=== PATIENT | female | born 2000 | race Caucasian/White ===

== ENCOUNTER → 2020-06-09 12:52 | Outpatient (CLI) | payer BC, SELFPAY ==
--- NOTE | ~2020-06-09 | US_ITS ---
EXAMINATION: US transvaginal EXAM DATE: 06/09/2020 13:17 INDICATION: Pelvic pain. TECHNIQUE: Pelvic transvaginal sonogram was performed. There are multiple grayscale and Doppler imag es available for interpretation. There is no prior study for comparison. FINDINGS: Uterus measures 5.8 x 2.9 x 3.2 cm, and is morphologically normal. Endometrial stripe mauricio sures 3 mm, within normal limits. There is no free pelvic fluid. Right adnexa: The ovary measures 2.5 x 1.2 x 2.1 cm and is morphologically normal. Ovarian vascular f low confirmed. Left adnexa: The ovary measures 1.5 x 0.8 x 1.6 cm and is morphologically normal. Ovarian vascular fl ow confirmed. IMPRESSION: 1. Unremarkable pelvic ultrasound exam. Reviewed, dictated and finalized at location A.
== END ==
PROVIDERS: PCP Family Medicine; Visit Provider Nurse Practitioner
DX: R10.2 Pelvic and perineal pain (principal)
CPT/HCPCS: 76830

== ENCOUNTER 2020-09-12 00:48 | Outpatient (CLI) | payer BC, SELFPAY ==
[2020-09-12 18:32] LABS: SARS-CoV-2 RNA PCR Negative
== END 2020-09-12 00:49 | disposition home or self-care (01) ==
LOC: ANHCOVIDDT 00:48
PROVIDERS: PCP Family Medicine; Visit Provider Internal Medicine Gastroenterology
DX: Z01.812 Encounter for preprocedural laboratory examination (principal); Z20.828 Contact with and (suspected) exposure to other viral communicable diseases
CPT/HCPCS: 87635; C9803; U0003

== ENCOUNTER 2020-09-15 00:51 | Day surgery (SDC) | payer BC, SELFPAY ==
[2020-09-07 13:35] VITALS: BMI 33.8
[2020-09-15 08:38] VITALS: BP 118/64; PULSE 115; RESP 20; TEMP 36.3; O2SAT 99
[2020-09-15] MEDS: LACTATED RINGERS 1,000 ML 150 ML IV CONT (08:51)
--- NOTE | 2020-09-15 09:11 | P.PNAN_ITS ---
Anes - Eval Pre Procedure Procedure: Operation Date: 09/15/20 10:00 Proposed Procedures p Screening Colonoscopy - Rolando Eller MD Date/Time: 09/15/20 09:11 Pre Op Diagnosis: Family HX of Colon CA Patient Data Age: 20 Gender: F Height: 5 ft 2 in Weight: 84 kg Last Vital Signs Temp 97.3 F L 09/15/20 08:38 Pulse 115 H 09/15/20 08:38 Resp 20 09/15/20 08:38 BP 118/64 09/15/20 08:38 Pulse Ox 99 09/15/20 08:38 Allergies Allergy/AdvReac Type Severity Reaction Status Date / Time amitriptyline [From Elavil] Allergy Intermediate increased Verified 09/15/20 08:26 heart rate latex Allergy Intermediate rash Verified 09/15/20 08:26 Home Medications Medication Instructions Recorded Confirmed Type bupropion HCl 150 mg 24 hr tablet, 150 mg PO QAM 04/20/20 04/20/20 History extended release desogestrel 0.15 mg-ethinyl 1 tablet PO DAILY 04/20/20 09/07/20 History estradiol 0.03 mg tablet fexofenadine 180 mg tablet 180 mg PO DAILY 04/20/20 09/07/20 History gabapentin 300 mg capsule 600 mg PO HS 04/20/20 09/07/20 History metformin 500 mg tablet 500 mg PO BID 04/20/20 09/07/20 History bupropion HCl 300 mg PO DAILY 09/07/20 09/07/20 History calcium carbonate-vitamin D3 1 tablet PO DAILY 09/07/20 09/07/20 History [Calcium 600 with Vitamin D3] lactobacillus comb no.10 20,000 mmu cells PO DAILY 09/07/20 09/07/20 History [Probiotic] PMFSH Past Medical History Medical History (Updated 06/17/20 @ 10:37 by Rolando Eller MD) Alkaline phosphatase elevation Anxiety Diarrhea PCOS (polycystic ovarian syndrome) Vulvodynia Surgical History Surgical History [place] teeth removed Family History Family History Mother Breast cancer, Onset Age: 53 Father Carcinoma of colon, Onset Age: 50 Social History Social History Smoking status: Never smoker Alcohol intake: current Substance use: never Substance use type: does not use Living arrangements: with family Spiritual care concerns: No Exam Day of Procedure 09/15/20 09:11 Patient weight: overweight Heart: regular rate and rhythm Lungs: clear to auscultation Airway: Mallampati scale class II Neurological: alert and oriented
--- NOTE | 2020-09-15 09:13 | P.PNAN_ITS ---
Anes - Initial Pre Proc Eval Procedure: Operation Date: 09/15/20 10:00 Proposed Procedures p Screening Colonoscopy - Rolando Eller MD Date/Time: 09/15/20 09:13 Surgeon: Rolando Eller MD Pre Op Diagnosis: Family HX of Colon CA Patient Data Age: 20 Gender: F Height: 5 ft 2 in Weight: 84 kg Last Vital Signs Temp 97.3 F L 09/15/20 08:38 Pulse 115 H 09/15/20 08:38 Resp 20 09/15/20 08:38 BP 118/64 09/15/20 08:38 Pulse Ox 99 09/15/20 08:38 Allergies Allergy/AdvReac Type Severity Reaction Status Date / Time amitriptyline [From Elavil] Allergy Intermediate increased Verified 09/15/20 08:26 heart rate latex Allergy Intermediate rash Verified 09/15/20 08:26 Home Medications Medication Instructions Recorded Confirmed Type bupropion HCl 150 mg 24 hr tablet, 150 mg PO QAM 04/20/20 04/20/20 History extended release desogestrel 0.15 mg-ethinyl 1 tablet PO DAILY 04/20/20 09/07/20 History estradiol 0.03 mg tablet fexofenadine 180 mg tablet 180 mg PO DAILY 04/20/20 09/07/20 History gabapentin 300 mg capsule 600 mg PO HS 04/20/20 09/07/20 History metformin 500 mg tablet 500 mg PO BID 04/20/20 09/07/20 History bupropion HCl 300 mg PO DAILY 09/07/20 09/07/20 History calcium carbonate-vitamin D3 1 tablet PO DAILY 09/07/20 09/07/20 History [Calcium 600 with Vitamin D3] lactobacillus comb no.10 20,000 mmu cells PO DAILY 09/07/20 09/07/20 History [Probiotic] Patient hx anesthesia problems: none Family hx anesthesia problems: none PMFSH Past Medical History Medical History (Updated 06/17/20 @ 10:37 by Rolando Eller MD) Alkaline phosphatase elevation Anxiety Diarrhea PCOS (polycystic ovarian syndrome) Vulvodynia Surgical History Surgical History [place] teeth removed Family History Family History Mother Breast cancer, Onset Age: 53 Father Carcinoma of colon, Onset Age: 50 Social History Social History Smoking status: Never smoker Alcohol intake: current Substance use: never Substance use type: does not use Living arrangements: with family Spiritual care concerns: No Anes - Eval Final PreProcedure Day of Procedure 09/15/20 09:13 Patient weight: overweight Heart: regular rate and rhythm Lungs: clear to auscultation Airway: Mallampati scale class II Neurological: alert and oriented Last oral intake: >/= 8 hours ASA classification: II Emergent: no Anesthetic plan: proceed Anesthesia type and monitoring: general GIVS and standard monitoring Informed Consent: The patient's anesthetic plan and its attendant risks and benefits were discussed with the patient/family/POA. Questions were solicited and answers provided to the satisfaction of the patient/family/POA.
--- NOTE | 2020-09-15 09:15 | P.PNAN_ITS ---
Anes - Initial Pre Proc Eval Procedure: Operation Date: 09/15/20 10:00 Proposed Procedures p Screening Colonoscopy - Rolando Eller MD Date/Time: 09/15/20 09:15 Surgeon: Rolando Eller MD Pre Op Diagnosis: Family HX of Colon CA Patient Data Age: 20 Gender: F Height: 5 ft 2 in Weight: 84 kg Last Vital Signs Temp 97.3 F L 09/15/20 08:38 Pulse 115 H 09/15/20 08:38 Resp 20 09/15/20 08:38 BP 118/64 09/15/20 08:38 Pulse Ox 99 09/15/20 08:38 Allergies Allergy/AdvReac Type Severity Reaction Status Date / Time amitriptyline [From Elavil] Allergy Intermediate increased Verified 09/15/20 08:26 heart rate latex Allergy Intermediate rash Verified 09/15/20 08:26 Home Medications Medication Instructions Recorded Confirmed Type bupropion HCl 150 mg 24 hr tablet, 150 mg PO QAM 04/20/20 04/20/20 History extended release desogestrel 0.15 mg-ethinyl 1 tablet PO DAILY 04/20/20 09/07/20 History estradiol 0.03 mg tablet fexofenadine 180 mg tablet 180 mg PO DAILY 04/20/20 09/07/20 History gabapentin 300 mg capsule 600 mg PO HS 04/20/20 09/07/20 History metformin 500 mg tablet 500 mg PO BID 04/20/20 09/07/20 History bupropion HCl 300 mg PO DAILY 09/07/20 09/07/20 History calcium carbonate-vitamin D3 1 tablet PO DAILY 09/07/20 09/07/20 History [Calcium 600 with Vitamin D3] lactobacillus comb no.10 20,000 mmu cells PO DAILY 09/07/20 09/07/20 History [Probiotic] Patient hx anesthesia problems: none Family hx anesthesia problems: none PMFSH Past Medical History Medical History (Updated 06/17/20 @ 10:37 by Rolando Eller MD) Alkaline phosphatase elevation Anxiety Diarrhea PCOS (polycystic ovarian syndrome) Vulvodynia Surgical History Surgical History [place] teeth removed Family History Family History Mother Breast cancer, Onset Age: 53 Father Carcinoma of colon, Onset Age: 50 Social History Social History Smoking status: Never smoker Alcohol intake: current Substance use: never Substance use type: does not use Living arrangements: with family Spiritual care concerns: No Anes - Eval Final PreProcedure Day of Procedure 09/15/20 09:15 Patient weight: overweight Heart: regular rate and rhythm Lungs: clear to auscultation Airway: Mallampati scale class II Neurological: alert and oriented Last oral intake: >/= 8 hours ASA classification: II Emergent: no Anesthetic plan: proceed Anesthesia type and monitoring: general GIVS and standard monitoring Informed Consent: The patient's anesthetic plan and its attendant risks and benefits were discussed with the patient/family/POA. Questions were solicited and answers provided to the satisfaction of the patient/family/POA.
--- NOTE | 2020-09-15 09:26 | PM.HPGS ---
History of Present Illness History of Present Illness Consent: Risks, benefits, and alternatives have been discussed and questions answered. Patient agrees to proceed with procedure. Chief complaint: Family HX of Colon CA Narrative: Katherine Valladares is a 20 year old female with intermittent abdominal cramping and diarrhea but lately better, also father with colon cancerat 50yo. Review of Systems Constitutional: Constitutional: Denies headache(s) and Denies weakness Eyes: Eyes: Denies blurry vision ENT: Reports Normal hearing present, Denies headache(s) and Denies neck pain Cardiovascular: Cardiovascular: Denies chest pain and Denies dyspnea Respiratory: Respiratory: Denies dyspnea Gastrointestinal: Gastrointestinal: Reports no additional gastrointestinal complaints Genitourinary: Genitourinary: Denies dysuria Musculoskeletal: Musculoskeletal: Denies neck pain Integumentary/Breasts: Skin/Breast: Denies dry skin Neurologic: Reports Normal hearing present, Denies headache(s) and Denies weakness Psychiatric: Psychiatric: Denies anxiety Endocrine: Endocrine: Denies change in body appearance Hematologic/Lymphatic: Hematologic/Lymphatic: Denies easy bleeding Allergic/Immunologic: Allergic/Immunologic: Denies urticaria PMFSH Past Medical History Medical History (Updated 06/17/20 @ 10:37 by Rolando Eller MD) Alkaline phosphatase elevation Anxiety Diarrhea PCOS (polycystic ovarian syndrome) Vulvodynia Surgical History Surgical History [place] teeth removed Family History Family History Mother Breast cancer, Onset Age: 53 Father Carcinoma of colon, Onset Age: 50 Social History Social History Smoking status: Never smoker Alcohol intake: current Substance use: never Substance use type: does not use Living arrangements: with family Spiritual care concerns: No Meds Home Medications and Allergies Home Medications Medication Instructions Recorded Confirmed Type bupropion HCl 150 mg 24 hr tablet, 150 mg PO QAM 04/20/20 04/20/20 History extended release desogestrel 0.15 mg-ethinyl 1 tablet PO DAILY 04/20/20 09/07/20 History estradiol 0.03 mg tablet fexofenadine 180 mg tablet 180 mg PO DAILY 04/20/20 09/07/20 History gabapentin 300 mg capsule 600 mg PO HS 04/20/20 09/07/20 History metformin 500 mg tablet 500 mg PO BID 04/20/20 09/07/20 History bupropion HCl 300 mg PO DAILY 09/07/20 09/07/20 History calcium carbonate-vitamin D3 1 tablet PO DAILY 09/07/20 09/07/20 History [Calcium 600 with Vitamin D3] lactobacillus comb no.10 20,000 mmu cells PO DAILY 09/07/20 09/07/20 History [Probiotic] Allergies Allergy/AdvReac Type Severity Reaction Status Date / Time amitriptyline [From Elavil] Allergy Intermediate increased Verified 09/15/20 08:26 heart rate latex Allergy Intermediate rash Verified 09/15/20 08:26 Vital Signs Vital Signs - 24 hr 09/15/20 08:38 Temperature 97.3 F L Pulse Rate 115 H Respiratory Rate 20 Blood Pressure 118/64 Pulse Oximetry 99 Exam Const: General: comfortable and no acute distress HENMT: General nose exam: Normal nares present Eyes: General: appearance normal, both eyes and all related structures Neck: Neck: no JVD Resp: Auscultation: clear to auscultation bilaterally Cardio: Rate: regular rate Rhythm: regular rhythm GI: Inspection: non-distended GI Palp: Yes Soft to palpation Skin: General skin exam: normal color Neuro: General: gait normal Speech: normal speech Extrem: General: normal to inspection Psych: Mental Status: mental status grossly normal Assessment and Plan Assessment and plan (1) Diarrhea: Code(s): R19.7 - Diarrhea, unspecified Status: Acute Assessment and Plan: will proceed with rosmery
[2020-09-15 09:48] VITALS: BP 99/50; PULSE 92; RESP 19; O2SAT 98
[2020-09-15 09:57] VITALS: BP 100/60; PULSE 90; RESP 19; O2SAT 100
[2020-09-15 10:07] VITALS: BP 119/78; PULSE 88; RESP 24; O2SAT 100
== END 2020-09-15 10:15 | disposition home or self-care (01) ==
PROVIDERS: PCP Family Medicine; Visit Provider Internal Medicine Gastroenterology
PROC: 0DJD8ZZ Inspection of Lower Intestinal Tract, Via Natural or Artificial Opening Endoscopic (ICD-10-PCS; CPT 45378; principal; 2020-09-15 10:00)
DX: K52.9 Noninfective gastroenteritis and colitis, unspecified (principal); K62.89 Other specified diseases of anus and rectum; Z80.0 Family history of malignant neoplasm of digestive organs; E28.2 Polycystic ovarian syndrome; F41.9 Anxiety disorder, unspecified
CPT/HCPCS: 45380; 88305; J2704; J7120

== ENCOUNTER 2020-10-02 16:36 | Outpatient (CLI) | payer BC, SELFPAY ==
[2020-10-02 17:30] LABS: Hematocrit 38.9 % (37.0-47.0); Hemoglobin 12.9 g/dL (12.0-15.0); Mean Corpuscular HGB Conc 33.2 g/dl (32-36); Mean Corpuscular Hemoglobin 27.9 pg (26-34); Mean Platelet Volume 8.1 fl (7.4-10.4); Platelet Count Result 397 k/mm3 (150-375); Red Blood Count 4.63 M/mm3 (4.2-5.4); Red Cell Distribution Width 12.7 % (11.5-14.5); White Blood Count 6.9 K/mm3 (4.5-10.0)
[2020-10-02 17:44] LABS: Alanine Aminotransferase 13 U/L (4-35); Albumin Level 3.8 g/dL (3.5-5.1); Alkaline Phosphatase 140 U/L (38-126); Anion Gap 9 mmol/L (8-16); Aspartate Amino Transferase 23 U/L (14-36); Bilirubin,Total 0.4 mg/dL (0.2-1.3); Blood Urea Nitrogen 5 mg/dL (7-17); Calcium 9.1 mg/dL (8.4-10.2); Carbon Dioxide 22 mmol/L (22-30); Chloride 107 mmol/L (98-107); Estimated Glomerular Filt Rate > 60; Glucose 137 mg/dL (65-105); Potassium 3.4 mmol/L (3.4-5.0); Sodium 138 mmol/L (137-145)
[2020-10-02 17:48] LABS: CRP 1.5 mg/dL (<1.0)
[2020-10-02 18:02] LABS: Erythrocyte Sedimentation Rate 27 mm/hr (0-20)
[2020-10-02 18:29] LABS: Hepatitis B Surface Antigen Negative (Negative)
[2020-10-02 18:49] LABS: Hepatitis B Surface Anti Res Positive
[2020-10-07 18:53] LABS: Hepatitis B Core Ab Total Nonreactive (Nonreactive)
[2020-10-20 17:25] LABS: TPMT Activity 14
== END 2020-10-02 16:37 | disposition home or self-care (01) ==
LOC: ANHLAB 16:38
PROVIDERS: PCP Family Medicine; Visit Provider Internal Medicine Gastroenterology
DX: R19.7 Diarrhea, unspecified (principal); K52.9 Noninfective gastroenteritis and colitis, unspecified
CPT/HCPCS: 36415; 80053; 82657; 85027; 85652; 86140; 86704; 86706; 87340

== ENCOUNTER 2021-03-30 12:59 | Outpatient (CLI) | payer BC, SELFPAY ==
--- NOTE | ~2021-03-30 | CT_ITS ---
EXAMINATION: CT brain wo con EXAM DATE: 03/30/2021 13:41 INDICATION: Intermittent right temporal headaches since October. TECHNIQUE: Spiral CT of the head was performed without contrast. Axial, coronal and sagittal images were reviewed. The dose-length product (DLP) for this examination was 605.33 mGy-cm. The exposure w as tailored according to patient size, and iterative reconstruction (ASIR) was used as additional dos e reduction technique. There is no prior study for comparison. FINDINGS: There is no acute intraparenchymal hemorrhage. No evidence of intraparenchymal brain mass lesion. No evidence of acute infarction. There is no mass effect or midline shift. The ventricles are normal in size. There are no extra-axial collections. There are no acute calvarial fractures. T he orbits are unremarkable. Soft tissue is unremarkable. The visualized sinuses and mastoid air júnior ls are well aerated. IMPRESSION: 1. Normal head CT examination. Reviewed, dictated and finalized at location B.
== END 2021-03-30 13:00 | disposition home or self-care (01) ==
LOC: ANHIMG 13:04
PROVIDERS: PCP Family Medicine; Visit Provider Physician Assistant
DX: R51.9 Headache, unspecified (principal)
CPT/HCPCS: 70450

== ENCOUNTER 2022-03-28 10:32 | Outpatient (RCR) | payer BC, SELFPAY ==
[2022-03-28] MEDS: ACETAMINOPHEN 325 MG TABLET 650 MG PO (14:36)
[2022-03-28] MEDS: FAMOTIDINE 20 MG TABLET PO (14:37)
[2022-03-28] MEDS: diphenhydrAMINE HCl CAP 25 MG CAPSULE PO (14:37)
[2022-03-28 14:39] VITALS: BP 135/89; PULSE 109; TEMP 36.2; O2SAT 100
[2022-03-28] MEDS: BEBTELOVIMAB 175 MG/2 ML VIAL IV PUSH (15:00)
[2022-03-28 15:36] VITALS: BP 129/84; PULSE 107; O2SAT 100
== END 2022-03-28 16:00 | disposition home or self-care (01) ==
LOC: AMCINF 10:32
PROVIDERS: PCP Family Medicine; Referring Provider Family Medicine; Visit Provider Internal Medicine Hematology & Oncology
DX: U07.1 COVID-19 (principal)
CPT/HCPCS: A9270; M0222; Q0222

== ENCOUNTER 2022-09-08 08:19 | Emergency (ER) | payer BC, SELFPAY ==
--- NOTE | ~2022-09-08 | XR_ITS ---
XR ankle RT min 3V DATE: 09/08/2022 08:47 INDICATION: Medial right ankle pain after a fall yesterday TECHNIQUE: 4 views COMPARISON: None FINDINGS: No fracture or dislocation of the ankle or disruption of the ankle mortise. No periosteal r eaction or bone destruction. IMPRESSION: Negative Reviewed, dictated and finalized at location A. NOLOGY TEACHER IMPRESSION: Negative
[2022-09-08 08:26] VITALS: BP 114/80; PULSE 104; RESP 14; TEMP 37.6; O2SAT 100
--- NOTE | 2022-09-08 09:04 | ED.LOWEXIN ---
HPI - Extremity Injury (Lower) General Chief Complaint: Extremity Injury, Lower Stated Complaint: rt ankle injury yesterday Time Seen by Provider: 09/08/22 08:27 History of Present Illness HPI Narrative: This is a 22-year-old female with past medical history of anxiety, who presents emergency department complaining of right ankle pain. Patient states she stepped in a hole yesterday and felt a pop. She describes the pain as 4/10, greater with weightbearing though she is able to walk. She denies any other injuries and has no other complaints. Related Data Home Medications Medication Instructions Recorded Confirmed desogestrel 0.15 mg-ethinyl 1 tablet PO DAILY 04/20/20 03/28/22 estradiol 0.03 mg tablet (Enskyce) fexofenadine 180 mg tablet 180 mg PO DAILY 04/20/20 03/28/22 gabapentin 300 mg capsule 600 mg PO HS 04/20/20 03/28/22 metformin 500 mg tablet 500 mg PO BID 04/20/20 03/28/22 calcium carbonate 600 mg-vitamin 1 tablet PO DAILY 09/07/20 03/28/22 D3 5 mcg (200 unit) tablet tofacitinib 22 mg tablet,extended 22 mg PO DAILY 03/28/22 03/28/22 release 24 hr (Xeljanz XR) Allergies Allergy/AdvReac Type Severity Reaction Status Date / Time amitriptyline [From Elavil] Allergy Intermediate increased Verified 04/20/22 11:24 heart rate latex Allergy Intermediate rash Verified 04/20/22 11:24 Review of Systems Review of Systems: CONSTITUTIONAL: Denies fever, chills, or sweats. EYES: Denies visual changes, redness, or discharge. ENT: Denies rhinorrhea, congestion, sore throat, or otalgia. CARDIOVASCULAR: Denies chest pain, palpitations, or edema. RESPIRATORY: Denies cough or dyspnea. GASTROINTESTINAL: Denies abdominal pain, nausea, vomiting, or diarrhea. GENITOURINARY: Denies dysuria or hematuria. SKIN: Denies rash or itching. MUSCULOSKELETAL: Right ankle pain denies back pain, or myalgia. NEUROLOGIC: Denies headache, numbness, dizziness, or weakness. PSYCHIATRIC: Denies anxiety or depression. PENDING SALE TO [facility] Past Medical History Medical History Alkaline phosphatase elevation Anxiety Colitis Diarrhea PCOS (polycystic ovarian syndrome) Ulcerative colitis Vulvodynia Surgical History Surgical History [place] teeth removed Family History Family History Mother Breast cancer, Onset Age: 53 Father Carcinoma of colon, Onset Age: 50 Social History Social History Smoking status: Never smoker Alcohol intake: current Substance use: never Substance use type: does not use Spiritual care concerns: No Exam Narrative: GENERAL: Well-developed, well-nourished, and in no acute distress. HEAD: Normocephalic, atraumatic. EYES: PERRLA and EOMI. CHEST: Clear to auscultation. No respiratory distress. No wheezes rales or rhonchi HEART: Regular rate and rhythm. No murmur heard. Normal peripheral pulses. ABDOMEN: Soft, nontender, nondistended, normal active bowel sounds. EXTREMITIES: Mild tenderness palpation at the right distal medial malleolus, no noted ecchymosis or swelling, normal range of motion. No edema. SKIN: Warm, dry, no rash. NEURO: No focal deficits. Alert and oriented x3. PSYCH: Normal mood and affect. Course Course Emergency Course: 09:08 - X-ray negative for fracture or dislocation. Advised patient to manage this with RICE therapy. Discussed return and emergency precautions including signs/symptoms of septic arthritis. Patient voiced understanding and is comfortable with the plan. All questions answered to her satisfaction. Vital Signs Vital signs: Vital Signs Temperature 99.7 F H 09/08/22 08:26 Pulse Rate 104 H 09/08/22 08:26 Respiratory Rate 14 09/08/22 08:26 Blood Pressure 114/80 09/08/22 08:26 Pulse Oximetry 100 09/08/22 08:26 Temperature 99.
== END 2022-09-08 09:30 | disposition home or self-care (01) ==
PROVIDERS: Emergency Provider Preventive Medicine Aerospace Medicine; PCP Family Medicine
DX: S93.401A Sprain of unspecified ligament of right ankle, initial encounter (principal); E28.2 Polycystic ovarian syndrome; K51.90 Ulcerative colitis, unspecified, without complications; Z79.84 Long term (current) use of oral hypoglycemic drugs; X50.9XXA Other and unspecified overexertion or strenuous movements or postures, initial encounter
CPT/HCPCS: 73610; 99283

== ENCOUNTER 2022-12-02 06:39 | Outpatient (CLI) | payer BC, SELFPAY ==
--- NOTE | ~2022-12-02 | CT_ITS ---
EXAMINATION: CT brain wo con DATE: 12/02/2022 06:59 INDICATION: Frontal headache. Dizziness. TECHNIQUE: Computed tomography (CT) of the head was performed without intravenous contrast. The mA wa s adjusted according to patient size. Iterative reconstruction technique was employed. The dose-lengt h product was 605.33 mGy-cm. COMPARISON: Head CT 03/30/2021 FINDINGS: There is no intracranial hemorrhage, acute infarction, or abnormal intracranial mass lesion . The ventricles are normal in size. There is mild mucosal thickening in the paranasal sinuses. The m astoid air cells are normal. The orbits are normal. IMPRESSION: 1. Normal brain. Reviewed, dictated and finalized at location A. ESSING TECHNICIAN IMPRESSION: 1. Normal brain.
== END 2022-12-02 06:40 | disposition home or self-care (01) ==
PROVIDERS: PCP Family Medicine; Visit Provider Physician Assistant Medical
DX: R51.9 Headache, unspecified (principal)
CPT/HCPCS: 70450

== ENCOUNTER → 2023-05-08 08:04 | Outpatient (CLI) | payer BC, SELFPAY ==
--- NOTE | ~2023-05-08 | US_ITS ---
US abdomen limited INDICATION: Right upper quadrant pain PROCEDURE: Realtime right upper abdominal ultrasound. COMPARISON: No prior studies for comparison. FINDINGS: The pancreas is normal without focal mass or pancreatic ductal dilation. Liver echotexture is increased, consistent with fatty infiltration. There is normal directional flow in the portal ve in. The gallbladder is normal without stones, gallbladder wall thickening or pericholecystic fluid. Comm on bile duct measures 4 mm. No sonographic Aviles's sign. IMPRESSION: 1: Hepatic steatosis. Reviewed, dictated and finalized at location A. IMPRESSION: 1: Hepatic steatosis.
== END ==
PROVIDERS: PCP Family Medicine; Visit Provider Family Medicine
DX: R11.0 Nausea (principal); K51.90 Ulcerative colitis, unspecified, without complications; K76.0 Fatty (change of) liver, not elsewhere classified
CPT/HCPCS: 76705

== ENCOUNTER → 2023-05-08 08:07 | Outpatient (CLI) | payer BC, SELFPAY ==
--- NOTE | ~2023-05-08 | XR_ITS ---
XR knee LT 3V 05/08/2023 08:33 Indication: Left knee pain Procedure: 3 views left knee Comparison: No prior studies for comparison. Findings: No fracture, subluxation or dislocation. No significant joint effusion. No foreign bodies. Impression: 1: No significant bone or joint abnormality. Reviewed, dictated and finalized at location A. Impression: 1: No significant bone or joint abnormality.
== END ==
PROVIDERS: PCP Family Medicine; Visit Provider Physician Assistant Medical
DX: M25.562 Pain in left knee (principal)
CPT/HCPCS: 73562

== ENCOUNTER 2023-11-29 10:33 | Outpatient (CLI) | payer BC, SELFPAY ==
--- NOTE | ~2023-11-29 | US_ITS ---
Pelvic ultrasound. Clinical History: Pelvic pain Technique: Realtime transabdominal scanning of the pelvis was performed. Color flow Doppler and Doppl er spectral analysis were performed. Findings: The uterus is anteverted, and measures 6.8 x 2.3 x 3.3 cm. The endometrial stripe has a th ickness of 5 mm. No focal mass is identified. The right ovary measures 2.3 x 2.9 x 1.8 cm. No significant right ovarian or adnexal mass is seen. The left ovary measures 2.4 x 1.6 x 2.2 cm. No significant left ovarian or adnexal mass is seen. There is no evidence of free fluid in the cul de sac. Impression: Unremarkable pelvic ultrasound. Reviewed, dictated and finalized at [facility]. OGEN BRAZE FURNACE OPERATOR Impression: Unremarkable pelvic ultrasound.
== END 2023-11-29 10:34 ==
LOC: MICIMG 10:34
PROVIDERS: PCP Obstetrics & Gynecology Gynecology; Visit Provider Obstetrics & Gynecology Gynecology
DX: R10.2 Pelvic and perineal pain (principal)
CPT/HCPCS: 76856